=== PATIENT | male | born 1980 | race Caucasian/White ===

== ENCOUNTER 2022-12-14 10:31 | Emergency (ER) | payer BC, OTHER ==
[2022-12-14] MEDS: Tetracaine HCl/PF 0.5% 4 ML Bottle EYERT ONE (11:27)
[2022-12-14] MEDS: Ciprofloxacin 0.3% Ophth Soln 5 ML Bottle EYERT ONE (11:28)
== END 2022-12-14 11:12 | disposition home or self-care (01) ==
LOC: KA.ED 10:31
DX: T15.01XA Foreign body in cornea, right eye, initial encounter (principal); I10 Essential (primary) hypertension; M19.90 Unspecified osteoarthritis, unspecified site; E66.9 Obesity, unspecified; Z68.38 Body mass index [BMI] 38.0-38.9, adult
CPT/HCPCS: 65205; 99283